=== PATIENT | male | born 1985 | race Caucasian/White ===

== ENCOUNTER 2016-08-02 21:32 | Emergency (ER) | payer OTHER ==
[2016-08-02] MEDS ORDERED: dexameTHASONE 4 MG/ML 1ML VIAL (J1100) As Ordered ONE (22:29)
[2016-08-02 22:31] LABS: CONTROL LINE MONO INT CTR LINE PRESENT
--- NOTE | 2016-08-02 22:53 | EDDOCDS ---
Nurse's Notes [facility] Name: Dallin Moore Age: 30 yrs Sex: Male : 1985 Arrival Date: 08/02/2016 Time: 21:32 Bed I9 / 22 Private MD: [facility] Diagnosis: Acute laryngitis Presentation: 08/02 21:46 Presenting complaint: Patient states: Sore throat since before Nura. Congestion. kmg1 Was Dx with Laryngitis by MD on Ft. Dr. Coughing. Risk factors: Stridor is not present. Drooling is not present. Shortness of breath is not present. Cellulitis is not present. Adult Sepsis Screening: The patient does not have new or worsening altered mentation. Patient's respiratory rate is less than 22. Systolic blood pressure is greater than 100. Patient has a qSOFA score of 0- Negative Sepsis Screen. Suicide/Homicide risk assessment- the patient denies having any suicidal and/or homicidal ideations and does not present with any other emotional, behavioral or mental health complaints. 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 Transition of care: patient was not received from another setting of care. 21:46 Acuity: ONEAL Level 5 [facility] 21:46 Method Of Arrival: Walkin/Carried/Asstd [facility] Triage Assessment: 21:50 General: Appears in no apparent distress, comfortable, Behavior is appropriate for age, kmg1 cooperative, pleasant. Pain: Location: Throat and center of back Pain currently is 6 out of 10 on a pain scale. Quality of pain is described as sharp. HIV screening NA for this visit Offered previously. EENT: Reports pain in throat. Respiratory: Reports cough that is. Historical: - Allergies: No known drug Allergies; - Home Meds: 1. Atrovent 18 mcg/actuation Inhl aero 2 puff twice a day 2. Dayquil 3. Jacquelyn-[place] Plus Sinus-Cough 5-10-325 mg oral cap - PMHx: none; - PSHx: PRK Eye Surgery; - Social history: Smoking status: Patient states was never smoker of tobacco. No barriers to communication noted, The patient speaks fluent Azerbaijani, Speaks appropriately for age. - : The pt / caregiver states he / she is not on anticoagulants. Home medication list is obtained from the patient. - Exposure Risk Screening:: None identified. Screenin:09 Screening information is obtained from prior medical records. Fall risk: No risks ms2 identified. Assistance ADL's: requires no assistance with activities of daily living. Abuse/DV Screen: The patient / caregiver reports he/she is: not in a situation that causes fear, pain or injury. Nutritional screening: No deficits noted. Advance Directives: Currently, there is a health care proxy, -angi moore. There is no active DNR order. There is no living will. There is no Power of Decorator Consultant. Advance directive information has not previously been placed in an [facility] medical record. Further advance directive information is declined. home support is adequate. Assessment: 22:07 Adult Sepsis Screening: The patient does not have new or worsening altered mentation. lf1 Patient's respiratory rate is less than 22. Systolic blood pressure is greater than 100. Patient has a qSOFA score of 0- Negative Sepsis Screen. General: Appears uncomfortable, Behavior is cooperative. Pain: Location: throat and generalized body aches Pain currently is 6 out of 10 on a pain scale. Neurological: Level of Consciousness is awake, alert, obeys commands, Oriented to person, place, time, Speech is normal. EENT: Throat is reddened Reports nasal congestion nasal discharge sore throat, painful cough. Respiratory: Airway is patent Respiratory effort is even, unlabored, Respiratory pattern is regular, Breath sounds are clear bilaterally. Reports cough that is pain with cough. GI: Denies nausea, vomiting. Derm: Skin is flushed. 22:51 General: Appears in no apparent distress, comfortable, Behavior is appropriate for age, ms18 cooperative, pleasant. Neurological: Level of Consciousness is awake, alert, obeys commands, Oriented to person, place, time. Respiratory: No deficits noted. Derm: Skin is pink, warm & dry. normal. Vital Signs: 21:35 BP 131 / 66; Pulse 94; Resp 18 S; Temp 98.9(O); Pulse Ox 97% on R/A; Weight 78.93 kg dd6 (R); Height 5 ft. 10 in. (177.80 cm) (R); 22:39 BP 119 / 76; Pulse 89; Resp 18; Temp 98.9; Pulse Ox 98% ; Pain 6/10; jlm 21:35 Body Mass Index 24.97 (78.93 kg, 177.80 cm) dd6 Vitals: 21:35 Log In Time: August 02, 2016 at 21:33. dd6 ED Course: 21:33 Patient visited by Raleigh Adorno PCA. dd6 21:33 Patient moved to Waiting dd6 21:34 [facility] is Private Physician. dd6 21:35 Patient moved to Pre RCE dd6 21:48 Triage Initiated kmg1 21:53 Patient moved to I cz 21:55 Nery Steinberg FNP is PHCP. le 22:07 The patient / caregiver is instructed regarding the plan of care and ED course. lf1 22:09 Patient visited by Nery Kern RN. lf1 22:09 Monoscreen Sent. ms2 22:10 Patient visited by Nery Steinberg FNP. le 22:10 The patient / caregiver is instructed regarding the plan of care and ED course. ms2 22:10 No IV's were initiated during this patient's visit. No procedures done that require ms2 assistance. 22:14 GATS (NEGATIVE STREP SCREEN) Sent. venessa 22:20 [facility] is Referral Physician. le 22:33 Patient visited by Kristina Morrison RN. ms18 22:39 Patient visited by Kristina Bonilla, Tight Rope Walker. jlm 22:42 [facility] Payment Agreement was scanned into [employer] and attached to record. zo 22:51 Patient visited by Kristina Morrison RN. ms18 22:51 Patient has correct armband on for positive identification. Property sent home with ms18 patient. :Personal belongings accompany Pt. Administered Medications: 22:33 Drug: Decadron - Dexamethasone Sodium Phosphate 8 mg [dexamethasone 4 mg/mL injection ms18 solution (2 mL)] Route: IM; Site: right gluteus; Order Results: Lab Order: Monoscreen; SPEC'M 08/02/16 22:06 Test: MONO SCRN; Value: NEGATIVE; Range: NEGATIVE; Status: F Outcome: 22:20 Discharge ordered by Provider. le 22:51 Discharge Assessment: Patient awake, alert and oriented x 3. No cognitive and/or ms18 functional deficits noted. Patient verbalized understanding of disposition instructions. patient administered narcotics - no. The following High Risk Discharge criteria are identified: None. Discharged to home ambulatory. Condition: good Condition: stable Condition: improved. Discharge instructions given to patient, Instructed on discharge instructions, follow up and referral plans. medication usage, Demonstrated understanding of instructions, medications, Pt was receptive of discharge instructions/ teaching. Prescriptions given X 1. No special radiology studies were completed. 22:52 Patient left the ED. ms18 Signatures: Syed Ewing,RN RN ms2 Marlen Jacobson, RN RN kmg1 [place], WIN RN cz Ifeoma Denson Lisa,RN RN lf1 Nery Steinberg, MANAGER TRAINING AND DEVELOPMENT MANAGER TRAINING AND DEVELOPMENT Raleigh Bell, GAS SHOVEL OPERATOR GAS SHOVEL OPERATOR dd6 Kaila Youngblood, GAS SHOVEL OPERATOR GAS SHOVEL OPERATOR Kristina Saavedra, Tight Rope Walker Unit Kristina Mccurdy,WIN RN ms18 ROSA MARIA
--- NOTE | 2016-08-02 22:53 | EDDOCDS ---
Physician Documentation [facility] Name: Dallin Moore Age: 30 yrs Sex: Male : 1985 Arrival Date: 08/02/2016 Time: 21:32 Bed I9 / 22 Private MD: [facility] Disposition: 08/02 22:24 Critical Care: Critical care not applicable. le Disposition: 08/02/16 22:20 Discharged to Home/Self Care. Impression: Acute laryngitis. - Condition is Stable. - Discharge Instructions: Laryngitis, Upper Respiratory Infection, Adult, Viral Infections. - Prescriptions for Fluticasone 50 mcg/actuation Nasal [place], Suspension - inhale 2 spray by INTRANASAL route once daily; 1 bottle. - Medication Reconciliation, Local Pharmacy Hours form. - Follow up: [facility]; When: Call to arrange an appointment; Reason: Recheck today's complaints, Continuance of care. - Problem is an ongoing problem. - Symptoms are unchanged. - Notes: Keep hydrated Alternate Ibuprofen and Tylenol, as needed, for pain or fever >101.5 Return to the ED for worsening symptoms, especially if unable to swallow secondary to pain/swelling Historical: - Allergies: No known drug Allergies; - Home Meds: 1. Atrovent 18 mcg/actuation Inhl aero 2 puff twice a day 2. Dayquil 3. Jacquelyn-[place] Plus Sinus-Cough 5-10-325 mg oral cap - PMHx: none; - PSHx: PRK Eye Surgery; - Social history: Smoking status: Patient states was never smoker of tobacco. No barriers to communication noted, The patient speaks fluent Occitan, Speaks appropriately for age. - : The pt / caregiver states he / she is not on anticoagulants. Home medication list is obtained from the patient. - Exposure Risk Screening:: None identified. Vital Signs: 21:35 BP 131 / 66; Pulse 94; Resp 18 S; Temp 98.9(O); Pulse Ox 97% on R/A; Weight 78.93 kg / dd6 174.01 lbs (R); Height 5 ft. 10 in. (177.80 cm) (R); 22:39 BP 119 / 76; Pulse 89; Resp 18; Temp 98.9; Pulse Ox 98% ; Pain 6/10; jlm 21:35 Body Mass Index 24.97 (78.93 kg, 177.80 cm) dd6 MDM: 21:59 Strep Screen, Nursing ordered. le 22:01 Monoscreen Ordered. EDMS 22:11 GATS (NEGATIVE STREP SCREEN) Ordered. EDMS 22:20 Decadron - Dexamethasone Sodium Phosphate 8 mg IM once ordered. le 22:33 Financial registration complete. zo 22:42 [facility] Payment Agreement was scanned into [employer] and attached to record. zo Administered Medications: 22:33 Drug: Decadron - Dexamethasone Sodium Phosphate 8 mg [dexamethasone 4 mg/mL injection ms18 solution (2 mL)] Route: IM; Site: right gluteus; Signatures: Dispatcher [employer] EDMarlen Spicer, RN RN kmg1 Ifeoma Denson Lisa,RN RN lf1 Nery Steinberg, ENVIRONMENTAL LAWYER ENVIRONMENTAL LAWYER Kristina Huggins,RN RN ms18 The chart was reviewed and I authenticate all verbal orders and agree with the evaluation and treatment provided.Attachments: 22:42 [facility] Payment Agreement zo MTDD
--- NOTE | 2016-08-04 23:53 | EDDOCDS ---
Physician Documentation [facility] Name: Dallin Moore Age: 30 yrs Sex: Male : 1985 Arrival Date: 08/02/2016 Time: 21:32 Bed I9 / 22 Private MD: [facility] Disposition: 08/02 22:24 Critical Care: Critical care not applicable. le Disposition: 08/02/16 22:20 Discharged to Home/Self Care. Impression: Acute laryngitis. - Condition is Stable. - Discharge Instructions: Laryngitis, Upper Respiratory Infection, Adult, Viral Infections. - Prescriptions for Fluticasone 50 mcg/actuation Nasal [place], Suspension - inhale 2 spray by INTRANASAL route once daily; 1 bottle. - Medication Reconciliation, Local Pharmacy Hours form. - Follow up: [facility]; When: Call to arrange an appointment; Reason: Recheck today's complaints, Continuance of care. - Problem is an ongoing problem. - Symptoms are unchanged. - Notes: Keep hydrated Alternate Ibuprofen and Tylenol, as needed, for pain or fever >101.5 Return to the ED for worsening symptoms, especially if unable to swallow secondary to pain/swelling Historical: - Allergies: No known drug Allergies; - Home Meds: 1. Atrovent 18 mcg/actuation Inhl aero 2 puff twice a day 2. Dayquil 3. Jacquelyn-[place] Plus Sinus-Cough 5-10-325 mg oral cap - PMHx: none; - PSHx: PRK Eye Surgery; - Social history: Smoking status: Patient states was never smoker of tobacco. No barriers to communication noted, The patient speaks fluent Swedish, Speaks appropriately for age. - : The pt / caregiver states he / she is not on anticoagulants. Home medication list is obtained from the patient. - Exposure Risk Screening:: None identified. Vital Signs: 21:35 BP 131 / 66; Pulse 94; Resp 18 S; Temp 98.9(O); Pulse Ox 97% on R/A; Weight 78.93 kg / dd6 174.01 lbs (R); Height 5 ft. 10 in. (177.80 cm) (R); 22:39 BP 119 / 76; Pulse 89; Resp 18; Temp 98.9; Pulse Ox 98% ; Pain 6/10; jlm 21:35 Body Mass Index 24.97 (78.93 kg, 177.80 cm) dd6 MDM: 21:59 Strep Screen, Nursing ordered. le 22:01 Monoscreen Ordered. EDMS 22:11 GATS (NEGATIVE STREP SCREEN) Ordered. EDMS 22:20 Decadron - Dexamethasone Sodium Phosphate 8 mg IM once ordered. le 22:33 Financial registration complete. zo 22:42 [facility] Payment Agreement was scanned into [employer] and attached to record. zo 08/03 13:06 T-Sheet-- Draft Copy was scanned into [employer] and attached to record. gb Administered Medications: 08/02 22:33 Drug: Decadron - Dexamethasone Sodium Phosphate 8 mg [dexamethasone 4 mg/mL injection ms18 solution (2 mL)] Route: IM; Site: right gluteus; Signatures: Dispatcher [employer] EDMS Marlen Jacobson, RN RN kmg1 Asmita Cheney, Reg Reg Ifeoma Meade Lisa,RN RN lf1 Nery Steinberg, GLASS INSTALLER TECHNICIAN GLASS INSTALLER TECHNICIAN Kristina Huggins,RN RN ms18 The chart was reviewed and I authenticate all verbal orders and agree with the evaluation and treatment provided.Attachments: 22:42 [facility] Payment Agreement zo 08/03 13:06 T-Sheet-- Draft Copy gb Chart Complete MTDD
--- NOTE | 2016-08-04 23:53 | EDDOCDS ---
Physician Documentation [facility] Name: Dallin Moore Age: 30 yrs Sex: Male : 1985 Arrival Date: 08/02/2016 Time: 21:32 Bed I9 / 22 Private MD: [facility] Disposition: 08/02 22:24 Critical Care: Critical care not applicable. le Disposition: 08/02/16 22:20 Discharged to Home/Self Care. Impression: Acute laryngitis. - Condition is Stable. - Discharge Instructions: Laryngitis, Upper Respiratory Infection, Adult, Viral Infections. - Prescriptions for Fluticasone 50 mcg/actuation Nasal [place], Suspension - inhale 2 spray by INTRANASAL route once daily; 1 bottle. - Medication Reconciliation, Local Pharmacy Hours form. - Follow up: [facility]; When: Call to arrange an appointment; Reason: Recheck today's complaints, Continuance of care. - Problem is an ongoing problem. - Symptoms are unchanged. - Notes: Keep hydrated Alternate Ibuprofen and Tylenol, as needed, for pain or fever >101.5 Return to the ED for worsening symptoms, especially if unable to swallow secondary to pain/swelling Historical: - Allergies: No known drug Allergies; - Home Meds: 1. Atrovent 18 mcg/actuation Inhl aero 2 puff twice a day 2. Dayquil 3. Jacquelyn-[place] Plus Sinus-Cough 5-10-325 mg oral cap - PMHx: none; - PSHx: PRK Eye Surgery; - Social history: Smoking status: Patient states was never smoker of tobacco. No barriers to communication noted, The patient speaks fluent Italian, Speaks appropriately for age. - : The pt / caregiver states he / she is not on anticoagulants. Home medication list is obtained from the patient. - Exposure Risk Screening:: None identified. Vital Signs: 21:35 BP 131 / 66; Pulse 94; Resp 18 S; Temp 98.9(O); Pulse Ox 97% on R/A; Weight 78.93 kg / dd6 174.01 lbs (R); Height 5 ft. 10 in. (177.80 cm) (R); 22:39 BP 119 / 76; Pulse 89; Resp 18; Temp 98.9; Pulse Ox 98% ; Pain 6/10; jlm 21:35 Body Mass Index 24.97 (78.93 kg, 177.80 cm) dd6 MDM: 21:59 Strep Screen, Nursing ordered. le 22:01 Monoscreen Ordered. EDMS 22:11 GATS (NEGATIVE STREP SCREEN) Ordered. EDMS 22:20 Decadron - Dexamethasone Sodium Phosphate 8 mg IM once ordered. le 22:33 Financial registration complete. zo 22:42 [facility] Payment Agreement was scanned into [employer] and attached to record. zo 08/03 13:06 T-Sheet-- Draft Copy was scanned into [employer] and attached to record. gb Administered Medications: 08/02 22:33 Drug: Decadron - Dexamethasone Sodium Phosphate 8 mg [dexamethasone 4 mg/mL injection ms18 solution (2 mL)] Route: IM; Site: right gluteus; Signatures: Dispatcher [employer] EDMS Marlen Jacobson, RN RN kmg1 Asmita Cheney, Reg Reg Ifeoma Meade Lisa,RN RN lf1 Nery Steinberg, OBIEE OBIA SOLUTION ARCHITECT OBIEE OBIA SOLUTION ARCHITECT Kristina Huggins,RN RN ms18 The chart was reviewed and I authenticate all verbal orders and agree with the evaluation and treatment provided.Attachments: 22:42 [facility] Payment Agreement zo 08/03 13:06 T-Sheet-- Draft Copy gb Chart Complete MTDD
--- NOTE | 2016-08-04 23:53 | EDDOCDS ---
Nurse's Notes [facility] Name: Dallin Moore Age: 30 yrs Sex: Male : 1985 Arrival Date: 08/02/2016 Time: 21:32 Bed I9 / 22 Private MD: [facility] Diagnosis: Acute laryngitis Presentation: 08/02 21:46 Presenting complaint: Patient states: Sore throat since before Nura. Congestion. kmg1 Was Dx with Laryngitis by MD on Ft. Dr. Coughing. Risk factors: Stridor is not present. Drooling is not present. Shortness of breath is not present. Cellulitis is not present. Adult Sepsis Screening: The patient does not have new or worsening altered mentation. Patient's respiratory rate is less than 22. Systolic blood pressure is greater than 100. Patient has a qSOFA score of 0- Negative Sepsis Screen. Suicide/Homicide risk assessment- the patient denies having any suicidal and/or homicidal ideations and does not present with any other emotional, behavioral or mental health complaints. 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 Transition of care: patient was not received from another setting of care. 21:46 Acuity: ONEAL Level 5 [facility] 21:46 Method Of Arrival: Walkin/Carried/Asstd [facility] Triage Assessment: 21:50 General: Appears in no apparent distress, comfortable, Behavior is appropriate for age, kmg1 cooperative, pleasant. Pain: Location: Throat and center of back Pain currently is 6 out of 10 on a pain scale. Quality of pain is described as sharp. HIV screening NA for this visit Offered previously. EENT: Reports pain in throat. Respiratory: Reports cough that is. Historical: - Allergies: No known drug Allergies; - Home Meds: 1. Atrovent 18 mcg/actuation Inhl aero 2 puff twice a day 2. Dayquil 3. Jacquelyn-[place] Plus Sinus-Cough 5-10-325 mg oral cap - PMHx: none; - PSHx: PRK Eye Surgery; - Social history: Smoking status: Patient states was never smoker of tobacco. No barriers to communication noted, The patient speaks fluent Swedish, Speaks appropriately for age. - : The pt / caregiver states he / she is not on anticoagulants. Home medication list is obtained from the patient. - Exposure Risk Screening:: None identified. Screenin:09 Screening information is obtained from prior medical records. Fall risk: No risks ms2 identified. Assistance ADL's: requires no assistance with activities of daily living. Abuse/DV Screen: The patient / caregiver reports he/she is: not in a situation that causes fear, pain or injury. Nutritional screening: No deficits noted. Advance Directives: Currently, there is a health care proxy, -angi moore. There is no active DNR order. There is no living will. There is no Power of Phys Asst. Advance directive information has not previously been placed in an [facility] medical record. Further advance directive information is declined. home support is adequate. Assessment: 22:07 Adult Sepsis Screening: The patient does not have new or worsening altered mentation. lf1 Patient's respiratory rate is less than 22. Systolic blood pressure is greater than 100. Patient has a qSOFA score of 0- Negative Sepsis Screen. General: Appears uncomfortable, Behavior is cooperative. Pain: Location: throat and generalized body aches Pain currently is 6 out of 10 on a pain scale. Neurological: Level of Consciousness is awake, alert, obeys commands, Oriented to person, place, time, Speech is normal. EENT: Throat is reddened Reports nasal congestion nasal discharge sore throat, painful cough. Respiratory: Airway is patent Respiratory effort is even, unlabored, Respiratory pattern is regular, Breath sounds are clear bilaterally. Reports cough that is pain with cough. GI: Denies nausea, vomiting. Derm: Skin is flushed. 22:51 General: Appears in no apparent distress, comfortable, Behavior is appropriate for age, ms18 cooperative, pleasant. Neurological: Level of Consciousness is awake, alert, obeys commands, Oriented to person, place, time. Respiratory: No deficits noted. Derm: Skin is pink, warm & dry. normal. Vital Signs: 21:35 BP 131 / 66; Pulse 94; Resp 18 S; Temp 98.9(O); Pulse Ox 97% on R/A; Weight 78.93 kg dd6 (R); Height 5 ft. 10 in. (177.80 cm) (R); 22:39 BP 119 / 76; Pulse 89; Resp 18; Temp 98.9; Pulse Ox 98% ; Pain 6/10; jlm 21:35 Body Mass Index 24.97 (78.93 kg, 177.80 cm) dd6 Vitals: 21:35 Log In Time: August 02, 2016 at 21:33. dd6 ED Course: 21:33 Patient visited by Raleigh Adorno PCA. dd6 21:33 Patient moved to Waiting dd6 21:34 [facility] is Private Physician. dd6 21:35 Patient moved to Pre RCE dd6 21:48 Triage Initiated kmg1 21:53 Patient moved to I cz 21:55 Nery Steinberg FNP is PHCP. le 22:07 The patient / caregiver is instructed regarding the plan of care and ED course. lf1 22:09 Patient visited by Nery Kern RN. lf1 22:09 Monoscreen Sent. ms2 22:10 Patient visited by Nery Steinberg FNP. le 22:10 The patient / caregiver is instructed regarding the plan of care and ED course. ms2 22:10 No IV's were initiated during this patient's visit. No procedures done that require ms2 assistance. 22:14 GATS (NEGATIVE STREP SCREEN) Sent. venessa 22:20 [facility] is Referral Physician. le 22:33 Patient visited by Kristina Morrison RN. ms18 22:39 Patient visited by Kristina Bonilla, Electric Range Servicer. jlm 22:42 [facility] Payment Agreement was scanned into [employer] and attached to record. zo 22:51 Patient visited by Kristina Morrison RN. ms18 22:51 Patient has correct armband on for positive identification. Property sent home with ms18 patient. :Personal belongings accompany Pt. 08/03 13:06 T-Sheet-- Draft Copy was scanned into [employer] and attached to record. gb Administered Medications: 08/02 22:33 Drug: Decadron - Dexamethasone Sodium Phosphate 8 mg [dexamethasone 4 mg/mL injection ms18 solution (2 mL)] Route: IM; Site: right gluteus; Order Results: Lab Order: Monoscreen; SPEC'M 08/02/16 22:06 Test: MONO SCRN; Value: NEGATIVE; Range: NEGATIVE; Status: F Lab Order: GATS (NEGATIVE STREP SCREEN); SPEC'M 08/02/16 22:15 Test: GATS CULTURE (NEG STREP SCR); Value: GATS RESULT POSITIVE FOR STREP PYOGENES (GROUP A); Abnormal: Abnormal; Status: F Test: GATS CULTURE (NEG STREP SCR); Value: ORGANISM 1: STREPTOCOCCUS PYOGENES GRP A; Status: F Test: GATS CULTURE (NEG STREP SCR); Value: STREPTOCOCCUS PYOGENES GRP A; Status: F Test: GATS CULTURE (NEG STREP SCR); Value: QUANTITY OF GROWTH FEW; Status: F Outcome: 22:20 Discharge ordered by Provider. le 22:51 Discharge Assessment: Patient awake, alert and oriented x 3. No cognitive and/or ms18 functional deficits noted. Patient verbalized understanding of disposition instructions. patient administered narcotics - no. The following High Risk Discharge criteria are identified: None. Discharged to home ambulatory. Condition: good Condition: stable Condition: improved. Discharge instructions given to patient, Instructed on discharge instructions, follow up and referral plans. medication usage, Demonstrated understanding of instructions, medications, Pt was receptive of discharge instructions/ teaching. Prescriptions given X 1. No special radiology studies were completed. 22:52 Patient left the ED. ms18 Signatures: Syed Ewing,RN RN ms2 Marlen Jacobson, RN RN kmg1 [place], WIN RN cz Asmita Cheney, Reg Reg Ifeoma Meade Lisa,RN RN lf1 Nery Steinberg, SUPERVISOR PROPERTIES SUPERVISOR PROPERTIES Raleigh Bell, RESEARCH FELLOW RESEARCH FELLOW dd6 Kaila Youngblood, RESEARCH FELLOW RESEARCH FELLOW Kristina Saavedra, Electric Range Servicer Unit Kristina Mccurdy RN RN ms18 Chart Complete MTDD
--- NOTE | 2016-08-05 09:30 | EDDOCDS ---
Physician Documentation [facility] Name: Dallin Moore Age: 30 yrs Sex: Male : 1985 Arrival Date: 08/02/2016 Time: 21:32 Bed I9 / 22 Private MD: [facility] Disposition: 08/02 22:24 Critical Care: Critical care not applicable. le Disposition: 08/02/16 22:20 Discharged to Home/Self Care. Impression: Acute laryngitis. - Condition is Stable. - Discharge Instructions: Laryngitis, Upper Respiratory Infection, Adult, Viral Infections. - Prescriptions for Fluticasone 50 mcg/actuation Nasal [place], Suspension - inhale 2 spray by INTRANASAL route once daily; 1 bottle. - Medication Reconciliation, Local Pharmacy Hours form. - Follow up: [facility]; When: Call to arrange an appointment; Reason: Recheck today's complaints, Continuance of care. - Problem is an ongoing problem. - Symptoms are unchanged. - Notes: Keep hydrated Alternate Ibuprofen and Tylenol, as needed, for pain or fever >101.5 Return to the ED for worsening symptoms, especially if unable to swallow secondary to pain/swelling Historical: - Allergies: No known drug Allergies; - Home Meds: 1. Atrovent 18 mcg/actuation Inhl aero 2 puff twice a day 2. Dayquil 3. Jacquelyn-[place] Plus Sinus-Cough 5-10-325 mg oral cap - PMHx: none; - PSHx: PRK Eye Surgery; - Social history: Smoking status: Patient states was never smoker of tobacco. No barriers to communication noted, The patient speaks fluent Nepali, Speaks appropriately for age. - : The pt / caregiver states he / she is not on anticoagulants. Home medication list is obtained from the patient. - Exposure Risk Screening:: None identified. Vital Signs: 21:35 BP 131 / 66; Pulse 94; Resp 18 S; Temp 98.9(O); Pulse Ox 97% on R/A; Weight 78.93 kg / dd6 174.01 lbs (R); Height 5 ft. 10 in. (177.80 cm) (R); 22:39 BP 119 / 76; Pulse 89; Resp 18; Temp 98.9; Pulse Ox 98% ; Pain 6/10; jlm 21:35 Body Mass Index 24.97 (78.93 kg, 177.80 cm) dd6 MDM: 21:59 Strep Screen, Nursing ordered. le 22:01 Monoscreen Ordered. EDMS 22:11 GATS (NEGATIVE STREP SCREEN) Ordered. EDMS 22:20 Decadron - Dexamethasone Sodium Phosphate 8 mg IM once ordered. le 22:33 Financial registration complete. zo :42 [facility] Payment Agreement was scanned into [employer] and attached to record. zo 08/03 13:06 T-Sheet-- Draft Copy was scanned into [employer] and attached to record. gb Administered Medications: 08/02 22:33 Drug: Decadron - Dexamethasone Sodium Phosphate 8 mg [dexamethasone 4 mg/mL injection ms18 solution (2 mL)] Route: IM; Site: right gluteus; Signatures: Dispatcher [employer] EDMS Marlen Jacobson, RN RN kmg1 Asmita Cheney, Reg Reg Ifeoma Meade Lisa,RN RN lf1 Nery Steinberg, ELECTRIC LIFT TRUCK DRIVER ELECTRIC LIFT TRUCK DRIVER Kristina Huggins,RN RN ms18 The chart was reviewed and I authenticate all verbal orders and agree with the evaluation and treatment provided.Attachments: 22:42 [facility] Payment Agreement zo 08/03 13:06 T-Sheet-- Draft Copy gb MTDD
--- NOTE | 2016-08-05 09:30 | EDDOCDS ---
Physician Documentation [facility] Name: Dallin Moore Age: 30 yrs Sex: Male : 1985 Arrival Date: 08/02/2016 Time: 21:32 Bed I9 / 22 Private MD: [facility] Disposition: 08/02 22:24 Critical Care: Critical care not applicable. le Disposition: 08/02/16 22:20 Discharged to Home/Self Care. Impression: Acute laryngitis. - Condition is Stable. - Discharge Instructions: Laryngitis, Upper Respiratory Infection, Adult, Viral Infections. - Prescriptions for Fluticasone 50 mcg/actuation Nasal [place], Suspension - inhale 2 spray by INTRANASAL route once daily; 1 bottle. - Medication Reconciliation, Local Pharmacy Hours form. - Follow up: [facility]; When: Call to arrange an appointment; Reason: Recheck today's complaints, Continuance of care. - Problem is an ongoing problem. - Symptoms are unchanged. - Notes: Keep hydrated Alternate Ibuprofen and Tylenol, as needed, for pain or fever >101.5 Return to the ED for worsening symptoms, especially if unable to swallow secondary to pain/swelling Historical: - Allergies: No known drug Allergies; - Home Meds: 1. Atrovent 18 mcg/actuation Inhl aero 2 puff twice a day 2. Dayquil 3. Jacquelyn-[place] Plus Sinus-Cough 5-10-325 mg oral cap - PMHx: none; - PSHx: PRK Eye Surgery; - Social history: Smoking status: Patient states was never smoker of tobacco. No barriers to communication noted, The patient speaks fluent Urdu, Speaks appropriately for age. - : The pt / caregiver states he / she is not on anticoagulants. Home medication list is obtained from the patient. - Exposure Risk Screening:: None identified. Vital Signs: 21:35 BP 131 / 66; Pulse 94; Resp 18 S; Temp 98.9(O); Pulse Ox 97% on R/A; Weight 78.93 kg / dd6 174.01 lbs (R); Height 5 ft. 10 in. (177.80 cm) (R); 22:39 BP 119 / 76; Pulse 89; Resp 18; Temp 98.9; Pulse Ox 98% ; Pain 6/10; jlm 21:35 Body Mass Index 24.97 (78.93 kg, 177.80 cm) dd6 MDM: 21:59 Strep Screen, Nursing ordered. le 22:01 Monoscreen Ordered. EDMS 22:11 GATS (NEGATIVE STREP SCREEN) Ordered. EDMS 22:20 Decadron - Dexamethasone Sodium Phosphate 8 mg IM once ordered. le 22:33 Financial registration complete. zo :42 [facility] Payment Agreement was scanned into [employer] and attached to record. zo 08/03 13:06 T-Sheet-- Draft Copy was scanned into [employer] and attached to record. gb Administered Medications: 08/02 22:33 Drug: Decadron - Dexamethasone Sodium Phosphate 8 mg [dexamethasone 4 mg/mL injection ms18 solution (2 mL)] Route: IM; Site: right gluteus; Signatures: Dispatcher [employer] EDMS Marlen Jacobson, RN RN kmg1 Asmita Cheney, Reg Reg Ifeoma Meade Lisa,RN RN lf1 Nery Steinberg, CREPE LAMINATOR OPERATOR CREPE LAMINATOR OPERATOR Kristina Huggins,RN RN ms18 The chart was reviewed and I authenticate all verbal orders and agree with the evaluation and treatment provided.Attachments: 22:42 [facility] Payment Agreement zo 08/03 13:06 T-Sheet-- Draft Copy gb MTDD
--- NOTE | 2016-08-05 09:30 | EDDOCDS ---
Nurse's Notes [facility] Name: Dallin Moore Age: 30 yrs Sex: Male : 1985 Arrival Date: 08/02/2016 Time: 21:32 Bed I9 / 22 Private MD: [facility] Diagnosis: Acute laryngitis Presentation: 08/02 21:46 Presenting complaint: Patient states: Sore throat since before [place]. Congestion. kmg1 Was Dx with Laryngitis by MD on [address]. Coughing. Risk factors: Stridor is not present. Drooling is not present. Shortness of breath is not present. Cellulitis is not present. Adult Sepsis Screening: The patient does not have new or worsening altered mentation. Patient's respiratory rate is less than 22. Systolic blood pressure is greater than 100. Patient has a qSOFA score of 0- Negative Sepsis Screen. Suicide/Homicide risk assessment- the patient denies having any suicidal and/or homicidal ideations and does not present with any other emotional, behavioral or mental health complaints. 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 Transition of care: patient was not received from another setting of care. 21:46 Acuity: ONEAL Level 5 [facility] [place] 21:46 Method Of Arrival: Walkin/Carried/Asstd [facility] [place] Triage Assessment: 21:50 General: Appears in no apparent distress, comfortable, Behavior is appropriate for age, kmg1 cooperative, pleasant. Pain: Location: Throat and center of back Pain currently is 6 out of 10 on a pain scale. Quality of pain is described as sharp. HIV screening NA for this visit Offered previously. EENT: Reports pain in throat. Respiratory: Reports cough that is. Historical: - Allergies: No known drug Allergies; - Home Meds: 1. Atrovent 18 mcg/actuation Inhl aero 2 puff twice a day 2. Dayquil 3. Jacquelyn-[place] Plus Sinus-Cough 5-10-325 mg oral cap - PMHx: none; - PSHx: PRK Eye Surgery; - Social history: Smoking status: Patient states was never smoker of tobacco. No barriers to communication noted, The patient speaks fluent Tongan, Speaks appropriately for age. - : The pt / caregiver states he / she is not on anticoagulants. Home medication list is obtained from the patient. - Exposure Risk Screening:: None identified. Screenin:09 Screening information is obtained from prior medical records. Fall risk: No risks ms2 identified. Assistance ADL's: requires no assistance with activities of daily living. Abuse/DV Screen: The patient / caregiver reports he/she is: not in a situation that causes fear, pain or injury. Nutritional screening: No deficits noted. Advance Directives: Currently, there is a health care proxy, -angi moore. There is no active DNR order. There is no living will. There is no Power of Tree Puller. Advance directive information has not previously been placed in an [facility] medical record. Further advance directive information is declined. home support is adequate. Assessment: 22:07 Adult Sepsis Screening: The patient does not have new or worsening altered mentation. lf1 Patient's respiratory rate is less than 22. Systolic blood pressure is greater than 100. Patient has a qSOFA score of 0- Negative Sepsis Screen. General: Appears uncomfortable, Behavior is cooperative. Pain: Location: throat and generalized body aches Pain currently is 6 out of 10 on a pain scale. Neurological: Level of Consciousness is awake, alert, obeys commands, Oriented to person, place, time, Speech is normal. EENT: Throat is reddened Reports nasal congestion nasal discharge sore throat, painful cough. Respiratory: Airway is patent Respiratory effort is even, unlabored, Respiratory pattern is regular, Breath sounds are clear bilaterally. Reports cough that is pain with cough. GI: Denies nausea, vomiting. Derm: Skin is flushed. 22:51 General: Appears in no apparent distress, comfortable, Behavior is appropriate for age, ms18 cooperative, pleasant. Neurological: Level of Consciousness is awake, alert, obeys commands, Oriented to person, place, time. Respiratory: No deficits noted. Derm: Skin is pink, warm & dry. normal. Vital Signs: 21:35 BP 131 / 66; Pulse 94; Resp 18 S; Temp 98.9(O); Pulse Ox 97% on R/A; Weight 78.93 kg dd6 (R); Height 5 ft. 10 in. (177.80 cm) (R); 22:39 BP 119 / 76; Pulse 89; Resp 18; Temp 98.9; Pulse Ox 98% ; Pain 6/10; jlm 21:35 Body Mass Index 24.97 (78.93 kg, 177.80 cm) dd6 Vitals: 21:35 Log In Time: August 02, 2016 at 21:33. dd6 ED Course: 21:33 Patient visited by Raleigh Adorno PCA. dd6 21:33 Patient moved to Waiting dd6 21:34 [facility] is Private Physician. dd6 21:35 Patient moved to Pre RCE dd6 21:48 Triage Initiated kmg1 21:53 Patient moved to I cz 21:55 Neyr Steinberg FNP is PHCP. le 22:07 The patient / caregiver is instructed regarding the plan of care and ED course. lf1 22:09 Patient visited by Nery Kern RN. lf1 22:09 Monoscreen Sent. ms2 22:10 Patient visited by Nery Steinberg FNP. le 22:10 The patient / caregiver is instructed regarding the plan of care and ED course. ms2 22:10 No IV's were initiated during this patient's visit. No procedures done that require ms2 assistance. 22:14 GATS (NEGATIVE STREP SCREEN) Sent. venessa 22:20 [facility] is Referral Physician. le 22:33 Patient visited by Kristina Morrison RN. ms18 22:39 Patient visited by Kristina Bonilla, Logging Equipment Operator. jlm 22:42 [facility] Payment Agreement was scanned into [employer] and attached to record. zo 22:51 Patient visited by Kristina Morrison RN. ms18 22:51 Patient has correct armband on for positive identification. Property sent home with ms18 patient. :Personal belongings accompany Pt. 08/03 13:06 T-Sheet-- Draft Copy was scanned into [employer] and attached to record. gb Administered Medications: 08/02 22:33 Drug: Decadron - Dexamethasone Sodium Phosphate 8 mg [dexamethasone 4 mg/mL injection ms18 solution (2 mL)] Route: IM; Site: right gluteus; Order Results: Lab Order: Monoscreen; SPEC'M 08/02/16 22:06 Test: MONO SCRN; Value: NEGATIVE; Range: NEGATIVE; Status: F Lab Order: GATS (NEGATIVE STREP SCREEN); SPEC'M 08/02/16 22:15 Test: GATS CULTURE (NEG STREP SCR); Value: GATS RESULT POSITIVE FOR STREP PYOGENES (GROUP A); Abnormal: Abnormal; Status: F Test: GATS CULTURE (NEG STREP SCR); Value: ORGANISM 1: STREPTOCOCCUS PYOGENES GRP A; Status: F Test: GATS CULTURE (NEG STREP SCR); Value: STREPTOCOCCUS PYOGENES GRP A; Status: F Test: GATS CULTURE (NEG STREP SCR); Value: QUANTITY OF GROWTH FEW; Status: F Outcome: 22:20 Discharge ordered by Provider. le 22:51 Discharge Assessment: Patient awake, alert and oriented x 3. No cognitive and/or ms18 functional deficits noted. Patient verbalized understanding of disposition instructions. patient administered narcotics - no. The following High Risk Discharge criteria are identified: None. Discharged to home ambulatory. Condition: good Condition: stable Condition: improved. Discharge instructions given to patient, Instructed on discharge instructions, follow up and referral plans. medication usage, Demonstrated understanding of instructions, medications, Pt was receptive of discharge instructions/ teaching. Prescriptions given X 1. No special radiology studies were completed. 22:52 Patient left the ED. ms18 Addendum: 08/05/2016 09:28 Narrative: GATS culture results reviewed by Dr Mills. Prescription for Amoxicillin 1gm mcp po BID x 10 days [facility] per pts request. Signatures: Syed Ewing,RN RN ms2 Marlen Jacobson RN RN kmPrema Desai RN RN mcp Zecher, Calvin, [place] cz Asmita Cheney, Reg Reg gb Ifeoma Denson Lisa,RN RN 1 Nery Steinberg, BUCKET HOOKER BUCKET HOOKER le Raleigh Adorno, SCRAPER HAND SCRAPER HAND dd6 Kaila Youngblood, SCRAPER HAND SCRAPER HAND Kristina Saavedra, Logging Equipment Operator Unit Kristina Mccurdy,RN RN ms18 MTDD
--- NOTE | 2016-08-05 09:32 | EDDOCDS ---
Physician Documentation [facility] Name: Dallin Moore Age: 30 yrs Sex: Male : 1985 Arrival Date: 08/02/2016 Time: 21:32 Bed I9 / 22 Private MD: [facility] Disposition: 08/02 22:24 Critical Care: Critical care not applicable. le Disposition: 08/02/16 22:20 Discharged to Home/Self Care. Impression: Acute laryngitis. - Condition is Stable. - Discharge Instructions: Laryngitis, Upper Respiratory Infection, Adult, Viral Infections. - Prescriptions for Fluticasone 50 mcg/actuation Nasal [place], Suspension - inhale 2 spray by INTRANASAL route once daily; 1 bottle. - Medication Reconciliation, Local Pharmacy Hours form. - Follow up: [facility]; When: Call to arrange an appointment; Reason: Recheck today's complaints, Continuance of care. - Problem is an ongoing problem. - Symptoms are unchanged. - Notes: Keep hydrated Alternate Ibuprofen and Tylenol, as needed, for pain or fever >101.5 Return to the ED for worsening symptoms, especially if unable to swallow secondary to pain/swelling Historical: - Allergies: No known drug Allergies; - Home Meds: 1. Atrovent 18 mcg/actuation Inhl aero 2 puff twice a day 2. Dayquil 3. Jacquelyn-[place] Plus Sinus-Cough 5-10-325 mg oral cap - PMHx: none; - PSHx: PRK Eye Surgery; - Social history: Smoking status: Patient states was never smoker of tobacco. No barriers to communication noted, The patient speaks fluent Swedish, Speaks appropriately for age. - : The pt / caregiver states he / she is not on anticoagulants. Home medication list is obtained from the patient. - Exposure Risk Screening:: None identified. Vital Signs: 21:35 BP 131 / 66; Pulse 94; Resp 18 S; Temp 98.9(O); Pulse Ox 97% on R/A; Weight 78.93 kg / dd6 174.01 lbs (R); Height 5 ft. 10 in. (177.80 cm) (R); 22:39 BP 119 / 76; Pulse 89; Resp 18; Temp 98.9; Pulse Ox 98% ; Pain 6/10; jlm 21:35 Body Mass Index 24.97 (78.93 kg, 177.80 cm) dd6 MDM: 21:59 Strep Screen, Nursing ordered. le 22:01 Monoscreen Ordered. EDMS 22:11 GATS (NEGATIVE STREP SCREEN) Ordered. EDMS 22:20 Decadron - Dexamethasone Sodium Phosphate 8 mg IM once ordered. le 22:33 Financial registration complete. zo 22:42 [facility] Payment Agreement was scanned into [employer] and attached to record. zo 08/03 13:06 T-Sheet-- Draft Copy was scanned into [employer] and attached to record. gb Administered Medications: 08/02 22:33 Drug: Decadron - Dexamethasone Sodium Phosphate 8 mg [dexamethasone 4 mg/mL injection ms18 solution (2 mL)] Route: IM; Site: right gluteus; Signatures: Dispatcher [employer] EDMS Marlen Jacobson, RN RN kmg1 Asmita Cheney, Reg Reg Ifeoma Meade Lisa,RN RN lf1 Nery Steinberg, SODA FOUNTAIN CLERK SODA FOUNTAIN CLERK Kristina Huggins,RN RN ms18 The chart was reviewed and I authenticate all verbal orders and agree with the evaluation and treatment provided.Attachments: 22:42 [facility] Payment Agreement zo 08/03 13:06 T-Sheet-- Draft Copy gb Chart Complete MTDD
--- NOTE | 2016-08-05 09:32 | EDDOCDS ---
Physician Documentation [facility] Name: Dallin Moore Age: 30 yrs Sex: Male : 1985 Arrival Date: 08/02/2016 Time: 21:32 Bed I9 / 22 Private MD: [facility] Disposition: 08/02 22:24 Critical Care: Critical care not applicable. le Disposition: 08/02/16 22:20 Discharged to Home/Self Care. Impression: Acute laryngitis. - Condition is Stable. - Discharge Instructions: Laryngitis, Upper Respiratory Infection, Adult, Viral Infections. - Prescriptions for Fluticasone 50 mcg/actuation Nasal [place], Suspension - inhale 2 spray by INTRANASAL route once daily; 1 bottle. - Medication Reconciliation, Local Pharmacy Hours form. - Follow up: [facility]; When: Call to arrange an appointment; Reason: Recheck today's complaints, Continuance of care. - Problem is an ongoing problem. - Symptoms are unchanged. - Notes: Keep hydrated Alternate Ibuprofen and Tylenol, as needed, for pain or fever >101.5 Return to the ED for worsening symptoms, especially if unable to swallow secondary to pain/swelling Historical: - Allergies: No known drug Allergies; - Home Meds: 1. Atrovent 18 mcg/actuation Inhl aero 2 puff twice a day 2. Dayquil 3. Jacquelyn-[place] Plus Sinus-Cough 5-10-325 mg oral cap - PMHx: none; - PSHx: PRK Eye Surgery; - Social history: Smoking status: Patient states was never smoker of tobacco. No barriers to communication noted, The patient speaks fluent Nepali, Speaks appropriately for age. - : The pt / caregiver states he / she is not on anticoagulants. Home medication list is obtained from the patient. - Exposure Risk Screening:: None identified. Vital Signs: 21:35 BP 131 / 66; Pulse 94; Resp 18 S; Temp 98.9(O); Pulse Ox 97% on R/A; Weight 78.93 kg / dd6 174.01 lbs (R); Height 5 ft. 10 in. (177.80 cm) (R); 22:39 BP 119 / 76; Pulse 89; Resp 18; Temp 98.9; Pulse Ox 98% ; Pain 6/10; jlm 21:35 Body Mass Index 24.97 (78.93 kg, 177.80 cm) dd6 MDM: 21:59 Strep Screen, Nursing ordered. le 22:01 Monoscreen Ordered. EDMS 22:11 GATS (NEGATIVE STREP SCREEN) Ordered. EDMS 22:20 Decadron - Dexamethasone Sodium Phosphate 8 mg IM once ordered. le 22:33 Financial registration complete. zo 22:42 [facility] Payment Agreement was scanned into [employer] and attached to record. zo 08/03 13:06 T-Sheet-- Draft Copy was scanned into [employer] and attached to record. gb Administered Medications: 08/02 22:33 Drug: Decadron - Dexamethasone Sodium Phosphate 8 mg [dexamethasone 4 mg/mL injection ms18 solution (2 mL)] Route: IM; Site: right gluteus; Signatures: Dispatcher [employer] EDMS Marlen Jacobson, RN RN kmg1 Asmita Cheney, Reg Reg Ifeoma Meade Lisa,RN RN lf1 Nery Steinberg, ENVIRONMENTAL SUSTAINABILITY MANAGER ENVIRONMENTAL SUSTAINABILITY MANAGER Kristina Huggins,RN RN ms18 The chart was reviewed and I authenticate all verbal orders and agree with the evaluation and treatment provided.Attachments: 22:42 [facility] Payment Agreement zo 08/03 13:06 T-Sheet-- Draft Copy gb Chart Complete MTDD
--- NOTE | 2016-08-05 09:32 | EDDOCDS ---
Nurse's Notes [facility] Name: Dallin Moore Age: 30 yrs Sex: Male : 1985 Arrival Date: 08/02/2016 Time: 21:32 Bed I9 / 22 Private MD: [facility] Diagnosis: Acute laryngitis Presentation: 08/02 21:46 Presenting complaint: Patient states: Sore throat since before Nura. Congestion. kmg1 Was Dx with Laryngitis by MD on Ft. Dr. Coughing. Risk factors: Stridor is not present. Drooling is not present. Shortness of breath is not present. Cellulitis is not present. Adult Sepsis Screening: The patient does not have new or worsening altered mentation. Patient's respiratory rate is less than 22. Systolic blood pressure is greater than 100. Patient has a qSOFA score of 0- Negative Sepsis Screen. Suicide/Homicide risk assessment- the patient denies having any suicidal and/or homicidal ideations and does not present with any other emotional, behavioral or mental health complaints. 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 Transition of care: patient was not received from another setting of care. 21:46 Acuity: ONEAL Level 5 [facility] [place] 21:46 Method Of Arrival: Walkin/Carried/Asstd [facility] [place] Triage Assessment: 21:50 General: Appears in no apparent distress, comfortable, Behavior is appropriate for age, kmg1 cooperative, pleasant. Pain: Location: Throat and center of back Pain currently is 6 out of 10 on a pain scale. Quality of pain is described as sharp. HIV screening NA for this visit Offered previously. EENT: Reports pain in throat. Respiratory: Reports cough that is. Historical: - Allergies: No known drug Allergies; - Home Meds: 1. Atrovent 18 mcg/actuation Inhl aero 2 puff twice a day 2. Dayquil 3. Jacquelyn-[place] Plus Sinus-Cough 5-10-325 mg oral cap - PMHx: none; - PSHx: PRK Eye Surgery; - Social history: Smoking status: Patient states was never smoker of tobacco. No barriers to communication noted, The patient speaks fluent Faroese, Speaks appropriately for age. - : The pt / caregiver states he / she is not on anticoagulants. Home medication list is obtained from the patient. - Exposure Risk Screening:: None identified. Screenin:09 Screening information is obtained from prior medical records. Fall risk: No risks ms2 identified. Assistance ADL's: requires no assistance with activities of daily living. Abuse/DV Screen: The patient / caregiver reports he/she is: not in a situation that causes fear, pain or injury. Nutritional screening: No deficits noted. Advance Directives: Currently, there is a health care proxy, -angi moore. There is no active DNR order. There is no living will. There is no Power of Ground Support Equipment Fitter. Advance directive information has not previously been placed in an [facility] medical record. Further advance directive information is declined. home support is adequate. Assessment: 22:07 Adult Sepsis Screening: The patient does not have new or worsening altered mentation. lf1 Patient's respiratory rate is less than 22. Systolic blood pressure is greater than 100. Patient has a qSOFA score of 0- Negative Sepsis Screen. General: Appears uncomfortable, Behavior is cooperative. Pain: Location: throat and generalized body aches Pain currently is 6 out of 10 on a pain scale. Neurological: Level of Consciousness is awake, alert, obeys commands, Oriented to person, place, time, Speech is normal. EENT: Throat is reddened Reports nasal congestion nasal discharge sore throat, painful cough. Respiratory: Airway is patent Respiratory effort is even, unlabored, Respiratory pattern is regular, Breath sounds are clear bilaterally. Reports cough that is pain with cough. GI: Denies nausea, vomiting. Derm: Skin is flushed. 22:51 General: Appears in no apparent distress, comfortable, Behavior is appropriate for age, ms18 cooperative, pleasant. Neurological: Level of Consciousness is awake, alert, obeys commands, Oriented to person, place, time. Respiratory: No deficits noted. Derm: Skin is pink, warm & dry. normal. Vital Signs: 21:35 BP 131 / 66; Pulse 94; Resp 18 S; Temp 98.9(O); Pulse Ox 97% on R/A; Weight 78.93 kg dd6 (R); Height 5 ft. 10 in. (177.80 cm) (R); 22:39 BP 119 / 76; Pulse 89; Resp 18; Temp 98.9; Pulse Ox 98% ; Pain 6/10; jlm 21:35 Body Mass Index 24.97 (78.93 kg, 177.80 cm) dd6 Vitals: 21:35 Log In Time: August 02, 2016 at 21:33. dd6 ED Course: 21:33 Patient visited by Raleigh Adorno PCA. dd6 21:33 Patient moved to Waiting dd6 21:34 [facility] is Private Physician. dd6 21:35 Patient moved to Pre RCE dd6 21:48 Triage Initiated kmg1 21:53 Patient moved to I cz 21:55 Nery Steinberg FNP is PHCP. le 22:07 The patient / caregiver is instructed regarding the plan of care and ED course. lf1 22:09 Patient visited by Nery Kern RN. lf1 22:09 Monoscreen Sent. ms2 22:10 Patient visited by Nery Steinberg FNP. le 22:10 The patient / caregiver is instructed regarding the plan of care and ED course. ms2 22:10 No IV's were initiated during this patient's visit. No procedures done that require ms2 assistance. 22:14 GATS (NEGATIVE STREP SCREEN) Sent. venessa 22:20 [facility] is Referral Physician. le 22:33 Patient visited by Kristina Morrison RN. ms18 22:39 Patient visited by Kristina Bonilla, Basket Turner. jlm 22:42 [facility] Payment Agreement was scanned into [employer] and attached to record. zo 22:51 Patient visited by Kristina Morrison RN. ms18 22:51 Patient has correct armband on for positive identification. Property sent home with ms18 patient. :Personal belongings accompany Pt. 08/03 13:06 T-Sheet-- Draft Copy was scanned into [employer]glass and attached to record. gb Administered Medications: 08/02 22:33 Drug: Decadron - Dexamethasone Sodium Phosphate 8 mg [dexamethasone 4 mg/mL injection ms18 solution (2 mL)] Route: IM; Site: right gluteus; Order Results: Lab Order: Monoscreen; SPEC'M 08/02/16 22:06 Test: MONO SCRN; Value: NEGATIVE; Range: NEGATIVE; Status: F Lab Order: GATS (NEGATIVE STREP SCREEN); SPEC'M 08/02/16 22:15 Test: GATS CULTURE (NEG STREP SCR); Value: GATS RESULT POSITIVE FOR STREP PYOGENES (GROUP A); Abnormal: Abnormal; Status: F Test: GATS CULTURE (NEG STREP SCR); Value: ORGANISM 1: STREPTOCOCCUS PYOGENES GRP A; Status: F Test: GATS CULTURE (NEG STREP SCR); Value: STREPTOCOCCUS PYOGENES GRP A; Status: F Test: GATS CULTURE (NEG STREP SCR); Value: QUANTITY OF GROWTH FEW; Status: F Outcome: 22:20 Discharge ordered by Provider. le 22:51 Discharge Assessment: Patient awake, alert and oriented x 3. No cognitive and/or ms18 functional deficits noted. Patient verbalized understanding of disposition instructions. patient administered narcotics - no. The following High Risk Discharge criteria are identified: None. Discharged to home ambulatory. Condition: good Condition: stable Condition: improved. Discharge instructions given to patient, Instructed on discharge instructions, follow up and referral plans. medication usage, Demonstrated understanding of instructions, medications, Pt was receptive of discharge instructions/ teaching. Prescriptions given X 1. No special radiology studies were completed. 22:52 Patient left the ED. ms18 Addendum: 08/05/2016 09:28 Narrative: GATS culture results reviewed by Dr Mills. Prescription for Amoxicillin 1gm mcp po BID x [address] [facility] per pts request. Signatures: Syed Ewing,RN RN ms2 Marlen Jacobson RN RN kmPrema Desai RN RN mcp Zecher, Calvin, WIN WALDEN cz Asmita Cheney, Reg Reg gb Ifeoma Denson Lisa,WIN RN 1 Nery Steinberg, PAYROLL EXAMINER PAYROLL EXAMINER Raleigh Bell, SATELLITE TECHNICIAN SATELLITE TECHNICIAN dd6 Kaila Youngblood, SATELLITE TECHNICIAN SATELLITE TECHNICIAN Kristina Saavedra, Basket Turner Unit Kristina Mccurdy RN RN ms18 Chart Complete MTDD
--- NOTE | 2016-08-05 09:33 | EDDOCDS ---
Nurse's Notes [facility] Name: Dallin Moore Age: 30 yrs Sex: Male : 1985 Arrival Date: 08/02/2016 Time: 21:32 Bed I9 / 22 Private MD: [facility] Diagnosis: Acute laryngitis Presentation: 08/02 21:46 Presenting complaint: Patient states: Sore throat since before Nura. Congestion. kmg1 Was Dx with Laryngitis by MD on Ft. Dr. Coughing. Risk factors: Stridor is not present. Drooling is not present. Shortness of breath is not present. Cellulitis is not present. Adult Sepsis Screening: The patient does not have new or worsening altered mentation. Patient's respiratory rate is less than 22. Systolic blood pressure is greater than 100. Patient has a qSOFA score of 0- Negative Sepsis Screen. Suicide/Homicide risk assessment- the patient denies having any suicidal and/or homicidal ideations and does not present with any other emotional, behavioral or mental health complaints. 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 Transition of care: patient was not received from another setting of care. 21:46 Acuity: ONEAL Level 5 [facility] [place] 21:46 Method Of Arrival: Walkin/Carried/Asstd [facility] [place] Triage Assessment: 21:50 General: Appears in no apparent distress, comfortable, Behavior is appropriate for age, kmg1 cooperative, pleasant. Pain: Location: Throat and center of back Pain currently is 6 out of 10 on a pain scale. Quality of pain is described as sharp. HIV screening NA for this visit Offered previously. EENT: Reports pain in throat. Respiratory: Reports cough that is. Historical: - Allergies: No known drug Allergies; - Home Meds: 1. Atrovent 18 mcg/actuation Inhl aero 2 puff twice a day 2. Dayquil 3. Jacquelyn-[place] Plus Sinus-Cough 5-10-325 mg oral cap - PMHx: none; - PSHx: PRK Eye Surgery; - Social history: Smoking status: Patient states was never smoker of tobacco. No barriers to communication noted, The patient speaks fluent New Zealander, Speaks appropriately for age. - : The pt / caregiver states he / she is not on anticoagulants. Home medication list is obtained from the patient. - Exposure Risk Screening:: None identified. Screenin:09 Screening information is obtained from prior medical records. Fall risk: No risks ms2 identified. Assistance ADL's: requires no assistance with activities of daily living. Abuse/DV Screen: The patient / caregiver reports he/she is: not in a situation that causes fear, pain or injury. Nutritional screening: No deficits noted. Advance Directives: Currently, there is a health care proxy, -angi moore. There is no active DNR order. There is no living will. There is no Power of Government Professor. Advance directive information has not previously been placed in an [facility] medical record. Further advance directive information is declined. home support is adequate. Assessment: 22:07 Adult Sepsis Screening: The patient does not have new or worsening altered mentation. lf1 Patient's respiratory rate is less than 22. Systolic blood pressure is greater than 100. Patient has a qSOFA score of 0- Negative Sepsis Screen. General: Appears uncomfortable, Behavior is cooperative. Pain: Location: throat and generalized body aches Pain currently is 6 out of 10 on a pain scale. Neurological: Level of Consciousness is awake, alert, obeys commands, Oriented to person, place, time, Speech is normal. EENT: Throat is reddened Reports nasal congestion nasal discharge sore throat, painful cough. Respiratory: Airway is patent Respiratory effort is even, unlabored, Respiratory pattern is regular, Breath sounds are clear bilaterally. Reports cough that is pain with cough. GI: Denies nausea, vomiting. Derm: Skin is flushed. 22:51 General: Appears in no apparent distress, comfortable, Behavior is appropriate for age, ms18 cooperative, pleasant. Neurological: Level of Consciousness is awake, alert, obeys commands, Oriented to person, place, time. Respiratory: No deficits noted. Derm: Skin is pink, warm & dry. normal. Vital Signs: 21:35 BP 131 / 66; Pulse 94; Resp 18 S; Temp 98.9(O); Pulse Ox 97% on R/A; Weight 78.93 kg dd6 (R); Height 5 ft. 10 in. (177.80 cm) (R); 22:39 BP 119 / 76; Pulse 89; Resp 18; Temp 98.9; Pulse Ox 98% ; Pain 6/10; jlm 21:35 Body Mass Index 24.97 (78.93 kg, 177.80 cm) dd6 Vitals: 21:35 Log In Time: August 02, 2016 at 21:33. dd6 ED Course: 21:33 Patient visited by Raleigh Adorno PCA. dd6 21:33 Patient moved to Waiting dd6 21:34 [facility] is Private Physician. dd6 21:35 Patient moved to Pre RCE dd6 21:48 Triage Initiated kmg1 21:53 Patient moved to I cz 21:55 Nery Steinberg FNP is PHCP. le 22:07 The patient / caregiver is instructed regarding the plan of care and ED course. lf1 22:09 Patient visited by Nery Kern RN. lf1 22:09 Monoscreen Sent. ms2 22:10 Patient visited by Nery Steinberg FNP. le 22:10 The patient / caregiver is instructed regarding the plan of care and ED course. ms2 22:10 No IV's were initiated during this patient's visit. No procedures done that require ms2 assistance. 22:14 GATS (NEGATIVE STREP SCREEN) Sent. venessa 22:20 [facility] is Referral Physician. le 22:33 Patient visited by Kristina Morrison RN. ms18 22:39 Patient visited by Kristina Bonilla, Customer Service Consultant. jlm 22:42 [facility] Payment Agreement was scanned into [employer] and attached to record. zo 22:51 Patient visited by Kristina Morrison RN. ms18 22:51 Patient has correct armband on for positive identification. Property sent home with ms18 patient. :Personal belongings accompany Pt. 08/03 13:06 T-Sheet-- Draft Copy was scanned into [employer] and attached to record. gb Administered Medications: 08/02 22:33 Drug: Decadron - Dexamethasone Sodium Phosphate 8 mg [dexamethasone 4 mg/mL injection ms18 solution (2 mL)] Route: IM; Site: right gluteus; Order Results: Lab Order: Monoscreen; SPEC'M 08/02/16 22:06 Test: MONO SCRN; Value: NEGATIVE; Range: NEGATIVE; Status: F Lab Order: GATS (NEGATIVE STREP SCREEN); SPEC'M 08/02/16 22:15 Test: GATS CULTURE (NEG STREP SCR); Value: GATS RESULT POSITIVE FOR STREP PYOGENES (GROUP A); Abnormal: Abnormal; Status: F Test: GATS CULTURE (NEG STREP SCR); Value: ORGANISM 1: STREPTOCOCCUS PYOGENES GRP A; Status: F Test: GATS CULTURE (NEG STREP SCR); Value: STREPTOCOCCUS PYOGENES GRP A; Status: F Test: GATS CULTURE (NEG STREP SCR); Value: QUANTITY OF GROWTH FEW; Status: F Outcome: 22:20 Discharge ordered by Provider. le 22:51 Discharge Assessment: Patient awake, alert and oriented x 3. No cognitive and/or ms18 functional deficits noted. Patient verbalized understanding of disposition instructions. patient administered narcotics - no. The following High Risk Discharge criteria are identified: None. Discharged to home ambulatory. Condition: good Condition: stable Condition: improved. Discharge instructions given to patient, Instructed on discharge instructions, follow up and referral plans. medication usage, Demonstrated understanding of instructions, medications, Pt was receptive of discharge instructions/ teaching. Prescriptions given X 1. No special radiology studies were completed. 22:52 Patient left the ED. ms18 Addendum: 08/05/2016 09:28 Narrative: GATS culture results reviewed by Dr Mills. Prescription for Amoxicillin 1gm mcp po BID x 10 days [facility] per pts request. Signatures: Syed Ewing,RN RN ms2 Marlen Jacobson RN RN kmPrema Desai RN RN mcp Zecher, Calvin, WIN WALDEN cz Asmita Cheney, Reg Reg gb Ifeoma Denson Lisa,WIN RN 1 Nery Steinberg, CYLINDER PRESS FEEDER CYLINDER PRESS FEEDER Raleigh Bell, BUSHEL GIRL BUSHEL GIRL dd6 Kaila Youngblood, BUSHEL GIRL BUSHEL GIRL Kristina Saavedra, Customer Service Consultant Unit Kristina Mccurdy RN RN ms18 Chart Complete MTDD
--- NOTE | 2016-08-05 09:33 | EDDOCDS ---
Physician Documentation [facility] Name: Dallin Moore Age: 30 yrs Sex: Male : 1985 Arrival Date: 08/02/2016 Time: 21:32 Bed I9 / 22 Private MD: [facility] Disposition: 08/02 22:24 Critical Care: Critical care not applicable. le Disposition: 08/02/16 22:20 Discharged to Home/Self Care. Impression: Acute laryngitis. - Condition is Stable. - Discharge Instructions: Laryngitis, Upper Respiratory Infection, Adult, Viral Infections. - Prescriptions for Fluticasone 50 mcg/actuation Nasal [place], Suspension - inhale 2 spray by INTRANASAL route once daily; 1 bottle. - Medication Reconciliation, Local Pharmacy Hours form. - Follow up: [facility]; When: Call to arrange an appointment; Reason: Recheck today's complaints, Continuance of care. - Problem is an ongoing problem. - Symptoms are unchanged. - Notes: Keep hydrated Alternate Ibuprofen and Tylenol, as needed, for pain or fever >101.5 Return to the ED for worsening symptoms, especially if unable to swallow secondary to pain/swelling Historical: - Allergies: No known drug Allergies; - Home Meds: 1. Atrovent 18 mcg/actuation Inhl aero 2 puff twice a day 2. Dayquil 3. Jacquelyn-[place] Plus Sinus-Cough 5-10-325 mg oral cap - PMHx: none; - PSHx: PRK Eye Surgery; - Social history: Smoking status: Patient states was never smoker of tobacco. No barriers to communication noted, The patient speaks fluent Syriac, Speaks appropriately for age. - : The pt / caregiver states he / she is not on anticoagulants. Home medication list is obtained from the patient. - Exposure Risk Screening:: None identified. Vital Signs: 21:35 BP 131 / 66; Pulse 94; Resp 18 S; Temp 98.9(O); Pulse Ox 97% on R/A; Weight 78.93 kg / dd6 174.01 lbs (R); Height 5 ft. 10 in. (177.80 cm) (R); 22:39 BP 119 / 76; Pulse 89; Resp 18; Temp 98.9; Pulse Ox 98% ; Pain 6/10; jlm 21:35 Body Mass Index 24.97 (78.93 kg, 177.80 cm) dd6 MDM: 21:59 Strep Screen, Nursing ordered. le 22:01 Monoscreen Ordered. EDMS 22:11 GATS (NEGATIVE STREP SCREEN) Ordered. EDMS 22:20 Decadron - Dexamethasone Sodium Phosphate 8 mg IM once ordered. le 22:33 Financial registration complete. zo 22:42 [facility] Payment Agreement was scanned into [employer] and attached to record. zo 08/03 13:06 T-Sheet-- Draft Copy was scanned into [employer] and attached to record. gb Administered Medications: 08/02 22:33 Drug: Decadron - Dexamethasone Sodium Phosphate 8 mg [dexamethasone 4 mg/mL injection ms18 solution (2 mL)] Route: IM; Site: right gluteus; Signatures: Dispatcher [employer] EDMS Marlen Jacobson, RN RN kmg1 Asmita Cheney, Reg Reg Ifeoma Meade Lisa,RN RN lf1 Nery Steinberg, RN SUPPLEMENTAL RN SUPPLEMENTAL Kristina Huggins,RN RN ms18 The chart was reviewed and I authenticate all verbal orders and agree with the evaluation and treatment provided.Attachments: 22:42 [facility] Payment Agreement zo 08/03 13:06 T-Sheet-- Draft Copy gb Chart Complete MTDD
--- NOTE | 2016-08-05 09:33 | EDDOCDS ---
Physician Documentation [facility] Name: Dallin Moore Age: 30 yrs Sex: Male : 1985 Arrival Date: 08/02/2016 Time: 21:32 Bed I9 / 22 Private MD: [facility] Disposition: 08/02 22:24 Critical Care: Critical care not applicable. le Disposition: 08/02/16 22:20 Discharged to Home/Self Care. Impression: Acute laryngitis. - Condition is Stable. - Discharge Instructions: Laryngitis, Upper Respiratory Infection, Adult, Viral Infections. - Prescriptions for Fluticasone 50 mcg/actuation Nasal [place], Suspension - inhale 2 spray by INTRANASAL route once daily; 1 bottle. - Medication Reconciliation, Local Pharmacy Hours form. - Follow up: [facility]; When: Call to arrange an appointment; Reason: Recheck today's complaints, Continuance of care. - Problem is an ongoing problem. - Symptoms are unchanged. - Notes: Keep hydrated Alternate Ibuprofen and Tylenol, as needed, for pain or fever >101.5 Return to the ED for worsening symptoms, especially if unable to swallow secondary to pain/swelling Historical: - Allergies: No known drug Allergies; - Home Meds: 1. Atrovent 18 mcg/actuation Inhl aero 2 puff twice a day 2. Dayquil 3. Jacquelyn-[place] Plus Sinus-Cough 5-10-325 mg oral cap - PMHx: none; - PSHx: PRK Eye Surgery; - Social history: Smoking status: Patient states was never smoker of tobacco. No barriers to communication noted, The patient speaks fluent Japanese, Speaks appropriately for age. - : The pt / caregiver states he / she is not on anticoagulants. Home medication list is obtained from the patient. - Exposure Risk Screening:: None identified. Vital Signs: 21:35 BP 131 / 66; Pulse 94; Resp 18 S; Temp 98.9(O); Pulse Ox 97% on R/A; Weight 78.93 kg / dd6 174.01 lbs (R); Height 5 ft. 10 in. (177.80 cm) (R); 22:39 BP 119 / 76; Pulse 89; Resp 18; Temp 98.9; Pulse Ox 98% ; Pain 6/10; jlm 21:35 Body Mass Index 24.97 (78.93 kg, 177.80 cm) dd6 MDM: 21:59 Strep Screen, Nursing ordered. le 22:01 Monoscreen Ordered. EDMS 22:11 GATS (NEGATIVE STREP SCREEN) Ordered. EDMS 22:20 Decadron - Dexamethasone Sodium Phosphate 8 mg IM once ordered. le 22:33 Financial registration complete. zo 22:42 [facility] Payment Agreement was scanned into [employer] and attached to record. zo 08/03 13:06 T-Sheet-- Draft Copy was scanned into Web[employer] and attached to record. gb Administered Medications: 08/02 22:33 Drug: Decadron - Dexamethasone Sodium Phosphate 8 mg [dexamethasone 4 mg/mL injection ms18 solution (2 mL)] Route: IM; Site: right gluteus; Signatures: Dispatcher [employer] EDMS Marlen Jacobson, RN RN kmg1 Asmita Cheney, Reg Reg Ifeoma Meade Lisa,RN RN lf1 Nery Steinberg, MANUFACTURING COST ESTIMATOR MANUFACTURING COST ESTIMATOR Kristina Huggins,RN RN ms18 The chart was reviewed and I authenticate all verbal orders and agree with the evaluation and treatment provided.Attachments: 22:42 [facility] Payment Agreement zo 08/03 13:06 T-Sheet-- Draft Copy gb Chart Complete MTDD
== END 2016-08-02 22:52 | disposition home or self-care (01) ==
LOC: M ED 21:32
DX: J04.0 Acute laryngitis (principal); J02.9 Acute pharyngitis, unspecified; J00 Acute nasopharyngitis [common cold]
CPT/HCPCS: 86308; 96372; 99283; J1100

== ENCOUNTER → 2016-10-01 | Outpatient (CLI) | payer OTHER ==
[~2016-10-01] MED LIST: E-Z PAQUE 60% w/v SUSP 355ML BOTTLE As Ordered ONE; E-Z-GAS II EFFERVESCENT PACKET (SODIUM BICARB./CITRIC ACID/SIMETHICONE) As Ordered ONE; E-Z-HD 98% w/w 340GM SUSP BTL As Ordered ONE
--- NOTE | 2016-10-01 13:42 | REP ---
ESOPHAGRAM BARIUM SWALLOW: 10/01/2016. Clinical history: Gastroesophageal reflux disease without esophagitis. Chronic cough. Comparison: chest x-ray 07/27/2015, CT chest 02/05/2014. Findings: PA chest: Lungs are well inflated and clear. Heart, mediastinal and hilar contours are normal. I see no hiatal hernia on the plain film. AP lateral CINE esophagram images show normal oropharyngeal transfer function. There is no laryngeal penetration or aspiration. Normal elevation of the cricopharyngeus is seen. On the upright images, there is normal distension and motility of the thoracic esophagus. No persistent mucosal abnormality, stricture, mass or extrinsic mass effect. On the prone oblique swallows, there was dysmotility of the thoracic esophagus which I would describe as mild with to and fro motion of the barium column. There was intermittent reflux. The stripping wave did not completely empty the esophagus on initial swallows and required repeated swallows to accomplish this on the prone oblique images. On the upright image after prone swallows, there is reflux of gas into the esophagus by a patulous gastroesophageal junction without hiatal hernia. There is no extrinsic mass effect upon the esophagus and no mucosal abnormality. Impression: 1. The barium swallow shows normal oropharyngeal transfer without laryngeal penetration or aspiration and no cervical esophageal stricture. Normal elevation of the cricopharyngeus. 2. There is no hiatal hernia. Mild dysmotility of the thoracic esophagus is seen. Incomplete stripping of the barium column on the prone oblique swallows but there is no stricture, persistent mucosal abnormality or extrinsic mass effect. 3. Reflux through a patulous gastroesophageal junction without hiatal hernia. 4. The building appraiser PA chest film was normal. Signed by Ej Wood MD 10/01/2016 04:16 P
== END ==
LOC: M RAD 08:50
PROVIDERS: ATTEND Specialist
DX: K21.9 Gastro-esophageal reflux disease without esophagitis (principal)

== ENCOUNTER → 2016-10-19 | Outpatient (CLI) | payer OTHER ==
--- NOTE | 2016-10-20 08:45 | REP ---
Maxillofacial CT without contrast History: Cough Mucosal thickening is present in the maxillary sinuses. Retention cysts or polyps are present in the maxillary sinuses. The remaining sinuses are clear. Mucosal thickening involves the ostiomeatal units. The middle and inferior nasal turbinates are partially paradoxical. There is mild deviation of the nasal septum to the right. A small spur is present arising from the right side of the nasal septum. The spur abuts the right inferior nasal turbinate. The cribriform plate, medial cook of the orbits and optic canals are intact. The carotid canals form a segment of the posterolateral cook of the sphenoid sinus. IMPRESSION: Sinus mucosal thickening as described above. Signed by Enrico Lim MD 10/20/2016 08:51 A
== END ==
LOC: M RAD 17:15
PROVIDERS: ATTEND Specialist
DX: R05 Cough (principal); K21.9 Gastro-esophageal reflux disease without esophagitis

== ENCOUNTER → 2016-11-19 | Outpatient (CLI) | payer OTHER ==
[~2016-11-19] VITALS: Ht 177.8 cm; Wt 80.7 kg
[~2016-11-19] MED LIST changes: -E-Z PAQUE 60% w/v SUSP 355ML BOTTLE As Ordered ONE; -E-Z-GAS II EFFERVESCENT PACKET (SODIUM BICARB./CITRIC ACID/SIMETHICONE) As Ordered ONE; -E-Z-HD 98% w/w 340GM SUSP BTL As Ordered ONE; +LIDOCAINE 2% INJ 100 MG/5 ML SDV (FOR ANES.) As Ordered ONE; +MULT1CHW39 PO; +NS 1,000 ML IV SCH; +OMEG100011 PO; +PRED10TA PO; +PROPOFOL 200 MG/20 ML VIAL As Ordered ONE; +PROTPAK PO
--- NOTE | 2016-11-19 13:44 | ROOR ---
Patient Name: Dallin Moore Procedure Date: 11/19/2016 1:28 PM Date of : 1985 Age: 31 Room: [facility] Gender: Male Note Status: Finalized Procedure: Upper GI endoscopy Indications: Chronic cough. (no pyrosis/heartburn. eval for "silent" GERD) Providers: Alfonso RAMOS MD Referring MD: MYKEL DOMINIQUE MD Requesting Provider: Medicines: Monitored Anesthesia Care Complications: No immediate complications. Procedure: Pre-Anesthesia Assessment: - The heart rate, respiratory rate, oxygen saturations, blood pressure, adequacy of pulmonary ventilation, and response to care were monitored throughout the procedure. The Endoscope was introduced through the mouth, and advanced to the second part of duodenum. The upper GI endoscopy was accomplished without difficulty. The patient tolerated the procedure well. Findings: The esophagus was normal. The stomach was normal. The examined duodenum was normal. Impression: - Normal esophagus. - Normal stomach. - Normal examined duodenum. - No specimens collected. Recommendation: - Observe patient's clinical course. - Continue present medications. Alfonso Ramos MD Alfonso RAMOS MD 11/19/2016 1:43:51 PM This report has been signed electronically. Number of Addenda: 0 Note Initiated On: 11/19/2016 1:28 PM Estimated Blood Loss: Estimated blood loss: none.
[2016-11-19 14:10] VITALS: BP 127/77
== END | disposition home or self-care (01) ==
LOC: M OPP 12:44
PROVIDERS: ATTEND Internal Medicine Gastroenterology
DX: R05 Cough (principal); R12 Heartburn; R06.83 Snoring; J01.90 Acute sinusitis, unspecified; Z91.048 Other nonmedicinal substance allergy status; Z79.899 Other long term (current) drug therapy; Z80.1 Family history of malignant neoplasm of trachea, bronchus and lung; Z80.8 Family history of malignant neoplasm of other organs or systems